=== PATIENT | female | born 1980 | race Caucasian/White ===

== ENCOUNTER 2023-05-06 08:41 | Emergency (ER) | payer BC, SELFPAY ==
[2023-05-06 08:48] VITALS: BP 134/89; PULSE 80; RESP 18; TEMP 36.8; O2SAT 100; BMI 23.3
[2023-05-06 09:01] VITALS: BP 118/54; PULSE 74; RESP 16; O2SAT 99
[2023-05-06 09:32] VITALS: BP 126/76; PULSE 66; RESP 14; O2SAT 100
--- NOTE | 2023-05-06 09:39 | ED_ITS ---
HPI - Chest Pain General Chief Complaint: Chest Pain Stated Complaint: chest pain Time Seen by Provider: 05/06/23 09:14 History of Present Illness HPI narrative: This 43-year-old female comes in reporting some mild left anterior chest discomfort over the past couple days. She states that she can reproduce this pain by pressing in her left chest. She does not report any recent injury event but recently has been doing some rowing for exercise. She does not have any exercise intolerance. She denies having any nausea, vomiting, lightheadedness, shortness of breath, or diaphoresis. She was at an appointment for regular checkup and mentioned this chest discomfort and was told to come here. She does not have any cardiac risk factors except her parents of both apparently with some degree of heart disease. One was 65 any other one was 67 years old. Related Data Home Medications Medication Instructions Recorded Confirmed No Known Home Medications 05/06/23 05/06/23 Allergies Allergy/AdvReac Type Severity Reaction Status Date / Time No Known Drug Allergies Allergy Verified 05/06/23 08:47 Review of Systems Status of ROS Reports: 10 or more systems reviewed and unremarkable except as noted in History and below Narrative Constitutional: No fevers, no weight gain or loss. Eyes: No discharge. No vision changes. HENT: No congestion, no sore throat, no ear pain. Cardiovascular: No palpitations. Respiratory: No shortness of breath, no wheezes, no cough. Gastrointestinal: No abdominal pain, no vomiting, no diarrhea. Genitourinary: No dysuria, no hematuria. Musculoskeletal: Normal range of motion. Skin: No rashes, no pruritis. Neurological: No dizziness, weakness, sensory change, speech change. Endo/Heme/Allergies: No bruising or bleeding. No polydipsia. Pysch: no suicidality, no anxiety, no insomnia. All other systems reviewed and are negative. PFSH PFSH Social History Smoking Status: Never smoker Do you use any of these nicotine containing products: None Second hand tobacco smoke exposure: No How often do you have a drink containing alcohol: monthly or less How many standard drinks containing alcohol do you have on a typical day: 1 or 2 How often do you have six or more drinks on one occasion: Never AUDIT-C Alcohol total score: 1 Non-prescribed substance use: denies use service: No Exam Narrative Exam Narrative: Constitutional: Well-developed, well-nourished, no acute distress. HEENT: Normocephalic, atraumatic. Neck: Normal range of motion. Nontender. Supple. Heart: Regular. No murmurs. Normal rate. Intact distal pulses. Lungs: Clear to auscultation. No wheezes, rhonchi, or rales. Chest discomfort in the left anterior chest is somewhat reproducible when palpating this area. Abdomen: Normal bowel sounds. Nontender. No rebound tenderness. Genitalia: Deferred. Back: No midline tenderness. Normal range of motion. Extremities: Normal range of motion. No injury. Skin: Intact. No rash. Warm. No erythema or pallor. Neurologic: No altered sensation. No weakness. Alert and oriented. Psychiatric: No suicidality. No anxiety or depression. No insomnia. Nursing notes and vitals signs are reviewed. Const Vital Signs, click to edit/add: Vital Signs - 24 hr 05/06/23 08:48 Temperature 98.3 F Pulse Rate [Pulse Oximeter] 80 Respiratory Rate 18 Blood Pressure [Left Upper Arm] 134/89 Pulse Oximetry 100 Oxygen Delivery Method Room Air Course Vital Signs Vital signs: Initial Vital Signs Temperature 98.3 F 05/06/23 08:48 Temperature Source Temporal Artery Scan 05/06/23 08:48 Pulse Rate 80 05/06/23 08:48 Pulse Rhythm Regular 05/06/23 08:48 Respiratory Rate 18 05/06/23 08:48 Blood Pressure 134/89 05/06/23 08:48 Blood Pressure Mean 104 05/06/23 08:48 Blood Pressure Position Supine 05/06/23 08:48 Pulse Oximetry 100 05/06/23 08:48 Oxygen Delivery Method Room Air 05/06/23 08:48 Vital Signs Temperature 98.3 F 05/06/23 08:48 Pulse Rate 80 05/06/23 08:48 Respiratory Rate 18 05/06/23 08:48 Blood Pressure 134/89 05/06/23 08:48 Pulse Oximetry 100 05/06/23 08:48 Oxygen Delivery Method Room Air 05/06/23 08:48 Temperature 98.3 F 05/06/23 08:48 Pulse Rate 80 05/06/23 08:48 Respiratory Rate 18 05/06/23 08:48 Blood Pressure 134/89 05/06/23 08:48 Pulse Oximetry 100 05/06/23 08:48 Oxygen Delivery Method Room Air 05/06/23 08:48 MDM - Chest Pain MDM Narrative Medical decision making narrative: This patient has reproducible chest discomfort that is suggestive of chest wall pain. She did recently begin some new activity on a rowing machine for exercise. Her EKG today looks completely normal. The patient states that she did have a full cardiac workup about 2 years ago because of some stress when parents that and a recent move. These results were all normal. The patient states that she does have lots of anxiety about symptoms or circumstances around her. Her chest pain is likely due to chest wall pain and amplified with her anxiety predisposition. I did discuss lab and imaging options with the patient and in a process of shared decision-making she declined any further studies at this time. ECG Data Attestation: I personally reviewed and interpreted this ECG as follows: Interpretation: Normal sinus rhythm. Rate is 72 beats per minute. There are no ST or T-wave abnormalities. Discharge Plan Discharge Clinical Impression: Acute chest wall pain Patient Disposition: Home, Self-Care Condition: Stable Additional Instructions: Continue current plans. Activity as tolerated. Follow up with MD return if worsening. Prescriptions: No Action No Known Home Medications Stand Alone Forms: [employer] Info Instructions
[2023-05-06 10:23] VITALS: BP 134/89; PULSE 80; RESP 18; TEMP 36.8
== END 2023-05-06 10:25 | disposition home or self-care (01) ==
PROVIDERS: Emergency Provider Emergency Medicine Emergency Medical Services
DX: R07.9 Chest pain, unspecified (principal)
CPT/HCPCS: 93005; 95992; 99284